=== PATIENT | female | born 1965 | race Caucasian/White ===

== ENCOUNTER 2023-10-13 16:33 | Outpatient (RCR) | payer OTHER, SELFPAY ==
--- NOTE | 2023-10-13 20:22 | HP.PTEVAL_ITS ---
Patient's Visit Information Visit Information Visit Information: HERMELINDA ZAPATA is a 58 year old F referred to Physical Therapy by Dr. Helio Ross MD with a diagnosis of RADICULOPLATHY LUMBAR REGION. Date of Evaluation: 10/13/23 Physical Therapist: Pranav Rowe, PT, Cert MDT, OCS Visit Plan Frequency: 2x /Week Duration: 4 Weeks Plan: PT INTERVETIONS KATE EX'S ,MANUAL THERAPY , DLS ,POSTURAL EX'S ,ACTIVITIY MODIFICATION AND MODALTIES Subjective Subjective: This 58 y/o female presents physical therapy with lumbar radiculopathy left. Patient has had left lumbar radicular symptoms in left leg for ~ 2 years . Patient seen Family and chiropractor who referred to orthopedic . Manuel Johnson referred to spine surgeon. Patient did receive injection hip which helped. pain located posterior leg pain glut hamstrings ,and calf. Patient aggravating factors bending ,lifting , ,sitting and driving.. Alleviating factors walking and standing. Alleviating factors rest . Medication muscle relaxer. Patient plans to get MRI and referred to pain management. Patient seen chiropractors tried estim doesnt help. Coughing/sneezing + . C/O paresthesia/tin gling. Patient pain affects sleeping . No abnormal night pain. Patient has had no trauma. Patient pain affects QOL and function. Patient goals to decrease pain. SOCIAL: VOCATION: [employer] Pain Right Lower Extremity: Pain Intensity (Out of 10): 8 Pain Intensity Range: 10 Objective Objective: POSTURE: mild forward posture NEURO: C/O paresthesia/tingling left arm ,reflexes L3-4,L4-5,L5-S1 2/3 GAIT: reciprocal pattern mild antalgic gait MMT: quads/hams/hip 4/5 left ,right 4/5 ,ankle 4/5 FLEXABLITY: hamstrings min tight PALAPTION: unremarkable LUMBAR ROM: flexion min loss pain in leg ,extension min loss , side glides min loss Special Tests L/S Slump test left side: Negative L/S Slump test right side: Positive L/S Left Straight Leg Raise: Negative L/S Right Straight Leg Raise: Negative Balance/Special Test Scores Oswestry Low Back Score: 30 Goals Goal 1:: Patient to be I with HEP for lumbar Goal Time Frame: 4-6 Weeks Goal 2:: Patient to improve posture /body mechanics 80% to include sitting posture Goal Time Frame: 4-6 Weeks Goal 3:: Patient to improve lumbar ROM for function of recovery for housework tasks Goal Time Frame: 4-6 Weeks Goal 4:: Patient to demonstrate 50% improvement with less pain and improved function Goal Time Frame: 4-6 Weeks Goal 5:: Patient to improve back oswestry score by 5 points to improve QOL and function Goal Time Frame: 4-6 Weeks Rehabilitation Potential Physical Therapy Diagnosis: This patient has lumbar radicular symptoms with possible disc involvement derangement below knee pain with positioning and motion testing worse with sitting better with extension and correction of posture Rehabilitation Potential: Good Anticipated Interventions Patient/Client Instruction: Educate patient on: Condition and Plan of Care For the Purpose of:: To decrease pain, To increase ROM, To improve muscle perfor maren and motor function, To increase tolerance to activity/condition/position, To improve ability of physical actions for home/community/work/leisure, To improve health of tissue, To decrease soft tissue restriction, To increase flexibility/ROM, To reduce risk of recurrence and To improve tolerance to ADL's Therapeutic Exercise to Include: Strength training, Body mechanics, Postural training, Flexibilty training, Dynamic Lumbar Stabilization and Kate Exercises For the Purpose of:: To decrease pain, To increase ROM, To improve muscle performance and motor function, To increase tolerance to activity/condition/position, To improve ability of physical actions for home/community/work/leisure, To improve gait and locomotor functions, To decrea se soft tissue restriction, To increase flexibility/ROM and To reduce risk of recurrence Manual Therapy Techniques to Include: Mobilization Comment: LUMBAR SPINE For the Purpose of:: To decrease pain, To increase ROM, To improve muscle performance and motor function, To improve health of tissue and To decrease soft tissue restriction TENS: Yes IF ES: Yes Cryotherapy (ice pack, ice massage): Yes Thermo therapy (hot pack): Yes Ultrasound (thermal/non thermal): Yes For the Purpose of:: To increase ROM, To improve health of tissue and To decrease soft tissue restriction Text: Thank you for the opportunity to evaluate your patient. For Medicare and Medicare HMO plans, please review the plan of care and approve it. It will need to be FAXED BACK to us at [phone] for Medicare purposes. For Medicare only, by signing this I certify the plan of care. Please let me know if there are questions or concerns regarding this plan of care. Physician Signature: Date:
--- NOTE | 2024-01-15 17:28 | HP.PT.NRP ---
Patient Information Patient Information: HERMELINDA ZAPATA was seen in my office for initial evaluation on 10/13/23. The following Plan of Care was established for this patient: POC Established Initial Frequency: 2x /Week Initial Duration: 4 Weeks Anticipated Interventions Patient/Client Instruction: Educate patient on: Condition and Plan of Care For the Purpose of:: To decrease pain, To increase ROM, To improve muscle performance and motor function, To increase tolerance to activity/condition/position, To improve ability of physical actions for home/community/work/leisure, To improve health of tissue, To decrease soft tissue restriction, To increase flexibility/ROM, To reduce risk of recurrence and To improve tolerance to ADL's Therapeutic Exercise to Include: Strength training, Body mechanics, Postural training, Flexibilty training, Dynamic Lumbar Stabilization and Jared Exercises For the Purpose of:: To decrease pain, To increase ROM, To improve muscle performance and motor function, To increase tolerance to activity/condition/position, To improve ability of physical actions for home/community/work/leisure, To improve gait and locomotor functions, To decrease soft tissue restriction, To increase flexibility/ROM and To reduce risk of recurrence Manual Therapy Techniques to Include: Mobilization Comment: LUMBAR SPINE For the Purpose of:: To decrease pain, To increase ROM, To improve muscle performance and motor function, To improve health of tissue and To decrease soft tissue restriction TENS: Yes IF ES: Yes Cryotherapy (ice pack, ice massage): Yes Thermo therapy (hot pack): Yes Ultrasound (thermal/non thermal): Yes For the Purpose of:: To increase ROM, To improve health of tissue and To decrease soft tissue restriction Last Seen Last Seen: This patient was last seen in our office . Pertinent comments regarding their Physical therapy will appear below: Patient seen for PT evaluation for lumbar radiculopathy hor HEP and wanting MRI At this point I will be discontinuing this patient from physical therapy. I would be happy to see this patient again in the future if found appropriate by the physician. Thank you! Pranav Rowe, PT, Cert MDT, OCS Balance/Gait/Functional tests Balance/Special Test Scores Oswestry Low Back Score: 30
== END 2023-10-13 19:00 | disposition home or self-care (01) ==
LOC: PT 16:33
PROVIDERS: PCP Internal Medicine; Referring Provider Orthopaedic Surgery Orthopaedic Surgery of the Spine; Visit Provider Orthopaedic Surgery Orthopaedic Surgery of the Spine
DX: M54.16 Radiculopathy, lumbar region (principal)
CPT/HCPCS: 97162; 97530

== ENCOUNTER 2025-01-29 23:56 | Emergency (ER) | payer OTHER, SELFPAY ==
[2025-01-29 23:57] VITALS: BP 170/72; PULSE 83; RESP 16; TEMP 36.6; O2SAT 95; BMI 39.6
--- NOTE | 2025-01-30 00:20 | CT_ITS ---
PROCEDURE: BRAIN/HEAD WITHOUT CONTRAST 01/30/2025 REASON FOR EXAM: LEDESMA TECHNIQUE: Head CT without intravenous contrast. Coronal and Sagittal reconstruction series were provided. One or more dose reduction techniques were used (e.g., Automated exposure control, adjustment of the mA and/or kV according to patient size, use of iterative reconstruction technique. RADIATION DOSE SUMMARY: CTDlvol: 45.0 mGy DLP: 813 mGycm COMPARISON: None FINDINGS: Brain: Normal. Marion-white differentiation is maintained. CSF Spaces: Normal Sinuses/Mastoids: Clear at visualized levels Bones: Unremarkable CT/Brain/Head without Contrast IMPRESSION: No acute intracranial abnormality. Reading Location: [facility]
[2025-01-30] MEDS: DiphenhydrAMINE 50 MG/ML Syringe 25 MG IV (00:24)
[2025-01-30] MEDS: Morphine 4 MG/ML Syringe IV (00:25)
[2025-01-30] MEDS: 0.9% Normal Saline (1000mL) 1,000 ML 1000 ML IV (00:25)
[2025-01-30] MEDS: Metoclopramide 10 MG/2 ML Vial 5 MG IV (00:25)
--- NOTE | 2025-01-30 00:39 | EDS_ITS ---
HPI History of Present Illness Chief Complaint: Headache Narrative Narrative: Chief complaint and HPI: Headache. 59-year-old female with no significant past medical history presents for evaluation of headache. Onset of headache was approximately 2 hours ago. Patient states she took 600 mg of ibuprofen with some relief. No history of migraines. She denies any fever, chills, shortness of breath, chest pain, abdominal pain, nausea, vomiting, numbness/tingling, neurological deficit, vision changes, URI symptoms, photophobia or phonophobia. Denies any trauma. Not on blood thinners Review of systems: See HPI Medications: As listed on the chart Allergies: As listed on the chart PFSH: Per chart Vital signs: As listed on the chart. Reviewed. Physical exam: Gen: A&O x3, NAD Head: Normocephalic, atraumatic Eyes: No sclera icterus, conjunctiva clear, PERRL, EOMI ENT: TMs clear BL, moist mucous membranes, posterior oropharynx unremarkable Neck: Trachea midline, No JVD, Full ROM, No meningismus CV: RRR, no murmurs, no peripheral edema Resp: Lungs CTA BL, no w/r/c GI: Abd soft, non-distended, non-tender, no r/r/g Musc: Full ROM, no deformity Skin: Warm, dry, no rash Neuro: Alert, oriented, grossly intact, sensation intact Psych: Cooperative, appropriate mood and affect [facility] Medical History Left hip pain Left lumbar radiculopathy Trochanteric bursitis, left hip Home Medications ?Medication ?Instructions ?Recorded ?Last Taken ?Type tizanidine 4 mg tablet 4 mg PO QHS PRN PRN hip pain 01/29/25 Unknown History Allergy/AdvReac Type Severity Reaction Status Date / Time azithromycin Allergy Mild Swelling Verified 01/29/25 23:57 codeine Allergy Mild Nausea Verified 01/29/25 23:57 Surgical History History of carpal tunnel release History of cholecystectomy History of reversal of tubal ligation History of toe surgery History of tubal ligation Social History Smoking Status: Former smoker alcohol intake: current alcohol intake frequency: holidays/special occasions only EXAM Physical Exam Const Vital Signs: 01/29/25 23:57 01/30/25 00:48 01/30/25 01:07 Temperature 98 F Temperature Source Oral Pulse Rate 83 69 66 Respiratory Rate 16 18 14 Blood Pressure 170/72 H 154/81 H 134/80 H Blood Pressure Mean 104 105 98 Pulse Ox 95 94 93 Oxygen Delivery Method Room Air Room Air Room Air MDM MDM MDM Narrative Medical decision making narrative: 59-year-old female with no significant past medical history presents for evaluation of headache. Onset of headache was approximately 2 hours ago. Patient states she took 600 mg of ibuprofen with some relief. No history of migraines. Headache did not reach maximal intensity in under 1 hour. Onset of headache was without exertional activity or trauma. States she was sitting on the couch. Patient has not experienced any fever, unusual neck pain or stiffness, syncope, or near syncope. They deny numbness, tingling, or weakness of the extremities. They also deny personal history of intracranial hemorrhage (including SAH), aneurysm, or AV malformation. On arrival, patient is hypertensive with a blood pressure 170/72. She states she has no history of hypertension although she states she has not seen a doctor in years. Patient may have undiagnosed hypertension versus hypertension secondary to pain. Given she has no history of migraines, will get CT head. Benadryl, Reglan, morphine, NS bolus ordered as headache cocktail. I do not think any further workup is needed. Differential diagnosis includes but is not limited to tension headache, migraine, low suspicion for subarachnoid hemorrhage or intracranial abnormality. CT head shows no acute abnormality. On reevaluation, patient's headache has improved. Minimal and almost resolved. At this point in time I suspect that her headache is secondary to tension versus migraine. Follow-up with PCP. Blood pressure did improve with pain. However cannot fully rule out hypertension. Was told to follow-up with PCP for this. She confirmed understanding. Tylenol and Motrin as needed for pain. Impression: 1. Headache Radiography Diagnostic Testing: Clinical Impression(s) from Imaging Studies Brain CT 01/30/25 00:20 IMPRESSION: No acute intracranial abnormality. Reading Location: [id number] Discharge Plan Triage Chief Complaint: Headache ED Provider: Larry Patton Dx/Rx/DC Orders Prescriptions: No Action tizanidine 4 mg tablet 4 mg PO QHS PRN PRN (Reason: hip pain) Primary Care Provider: Care Physician,No Primary Referrals: Care Physician,No Primary [Primary Care Provider] - Print Language: Bangladeshi
[2025-01-30 00:48] VITALS: BP 154/81; PULSE 69; RESP 18; O2SAT 94
[2025-01-30 01:07] VITALS: BP 134/80; PULSE 66; RESP 14; O2SAT 93
== END 2025-01-30 01:24 | disposition home or self-care (01) ==
PROVIDERS: Emergency Provider Surgery; Visit Provider Surgery
DX: R51.9 Headache, unspecified (principal); Z87.891 Personal history of nicotine dependence; Z90.49 Acquired absence of other specified parts of digestive tract; Z98.51 Tubal ligation status
CPT/HCPCS: 70450; 96361; 96374; 96375; 99284; A4216